=== PATIENT | male | born 1990 ===

== ENCOUNTER 2018-01-14 08:26 | Emergency (ER) | payer OTHER ==
[2018-01-14 08:51] VITALS: BP 137/96; PULSE 90; RESP 16; TEMP 98.6; O2SAT 100
--- NOTE | 2018-01-14 09:23 | C.PDOC ---
History Of Present Illness 27 years old male brought by EMS after his girlfriend called the athletics teacher stating that they were having an argument. As per girlfriend, the patient was yelling, hit his head on the wall, was throwing thing and stated he wanted to kill himself. As per patient, he states he was drinking last night, his girlfriend was talking to another ashwin and he got jealous, but did not mean that he wanted to kill himself. Denies any physical complaints. Time Seen by Provider: 01/14/18 08:32 Chief Complaint (Nursing): Psychiatric Evaluation History Per: Patient History/Exam Limitations: no limitations Onset/Duration Of Symptoms: Hrs Current Symptoms Are (Timing): Still Present Suicide/Self Injury Attempted (Context): None Modifying Factor(s): Alcohol Associated Symptoms: denies: Suicidal Thoughts, Suicidal Plan Involuntary Hold By: None Recent travel outside of the [place]: No Past Medical History Reviewed: Historical Data, Nursing Documentation, Vital Signs Vital Signs: Last Vital Signs Temp 98.6 F 01/14/18 08:28 Pulse 90 01/14/18 08:28 Resp 16 01/14/18 08:28 BP 137/96 H 01/14/18 08:28 Pulse Ox 100 01/14/18 09:27 - Medical History PMH: No Chronic Diseases Surgical History: No Surg Hx Family History: States: No Known Family Hx - Social History Hx Alcohol Use: Yes Hx Substance Use: No - Immunization History Hx Tetanus Toxoid Vaccination: No Hx Influenza Vaccination: No Hx Pneumococcal Vaccination: No Review Of Systems Constitutional: Negative for: Fever, Chills Cardiovascular: Negative for: Chest Pain Respiratory: Negative for: Shortness of Breath Gastrointestinal: Negative for: Nausea, Vomiting, Diarrhea Neurological: Negative for: Weakness, Numbness Psych: Negative for: Suicidal ideation Physical Exam - Physical Exam Appears: Well, Non-toxic, No Acute Distress Skin: Normal Color, Warm, Dry Head: Normacephalic, Swelling (small to mid forhead ), No Laceration Eye(s): bilateral: Normal Inspection, PERRL, EOMI Nose: Normal, No Discharge, No Epistaxis Oral Mucosa: Moist Neck: Supple Chest: Symmetrical, No Tenderness Cardiovascular: Rhythm Regular Respiratory: Normal Breath Sounds, No Decreased Breath Sounds, No Rales, No Rhonchi, No Wheezing Gastrointestinal/Abdominal: Soft, No Tenderness, No Distention Extremity: Normal ROM, No Deformity Neurological/Psych: Oriented x3, Normal Speech Gait: Steady ED Course And Treatment - Laboratory Results Result Diagrams: 01/14/18 09:25 01/14/18 09:25 Lab Interpretation: No Acute Changes O2 Sat by Pulse Oximetry: 100 (RA) Pulse Ox Interpretation: Normal Medical Decision Making Medical Decision Making: PES worker at bedside for quick eval, she recommends full assessment and labwork for medical clearance. Patient is no suicidal and does not meet 1:1 criteria. 9:30 Labs ordered and reviewed, and unremarkable. Notify PES worker who will contact psychiatrist Dr Chow. [id number] Still pending callback from Dr Chow. Dr Chow has not called back. Patient eloped ER roughly around 11am as per RN, his girlfriend showed up and presumable left with her. Patient was clinically sober and stable Disposition Counseled Patient/Family Regarding: Need For Followup - Disposition Disposition: ELOPEMENT - ER ONLY Disposition Time: 11:15 Condition: STABLE Forms: [employer] ([place]) - POA Present On Arrival: None - Clinical Impression Clinical Impression: Alcohol intoxication, Argumentative behavior - PA / ORDER ENTRY SPECIALIST / Resident Statement MD/DO has reviewed & agrees with the documentation as recorded. - Scribe Statement The provider has reviewed the documentation as recorded by the Paula Wright All medical record entries made by the Paula were at my direction and personally dictated by me. I have reviewed the chart and agree that the record accurately reflects my personal performance of the history, physical exam, medical decision making, and the department course for this patient. I have also personally directed, reviewed, and agree with the discharge instructions and disposition.
[2018-01-14 09:29] LABS: HEMOGLOBIN 16.9 g/dL (12.0-18.0); MEAN CELL VOLUME 84.2 fL (80.0-94.0); MEAN CORPUSCULAR HEMOGLOBIN 28.1 pg (27.0-31.0); MEAN CORPUSCULAR HGB CONC 33.4 g/dL (33.0-37.0); MEAN PLATELET VOLUME 7.5 fL (7.2-11.7); RED CELL DISTRIBUTION WIDTH 13.6 % (11.5-14.5); WHITE BLOOD COUNT 7.4 K/uL (4.8-10.8)
[2018-01-14 09:31] LABS: URINE BILIRUBIN NEGATIVE (NEGATIVE); URINE BLOOD 2+ (NEGATIVE); URINE CLARITY Clear (Clear); URINE COLOR Yellow (YELLOW); URINE GLUCOSE (UA) NORMAL (Normal); URINE LEUKOCYTE ESTERASE NEG Leu/uL (Negative); URINE NITRATE NEGATIVE (NEGATIVE); URINE PROTEIN NEGATIVE (NEGATIVE); URINE UROBILINOGEN NORMAL mg/dL (0.2-1.0)
[2018-01-14 09:43] LABS: ALB/GLOB RATIO 1.5 (1.0-2.1); ALBUMIN 4.7 g/dL (3.5-5.0); ALT/SGPT 134 U/L (21-72); AST/SGOT 59 U/L (17-59); BLOOD UREA NITROGEN 11 mg/dL (9-20); CALCIUM 9.4 mg/dl (8.6-10.4); GFR AFRICAN-AMERICAN > 60; GFR NON-AFRICAN AMERICAN > 60
[2018-01-14 10:05] LABS: BARBITURATES, UR NEGATIVE (NEGATIVE); BENZODIAZEPINES, UR NEGATIVE (NEGATIVE); PHENCYCLIDINE, UR NEGATIVE (NEGATIVE)
[2018-01-14 10:53] LABS: OPIATES, UR POSITIVE (NEGATIVE)
== END 2018-01-14 09:22 | disposition left against medical advice (07) ==
LOC: C.ER 08:26
DX: F10.129 Alcohol abuse with intoxication, unspecified (principal); Y90.2 Blood alcohol level of 40-59 mg/100 ml; F91.3 Oppositional defiant disorder